=== PATIENT | male | born 1935 | race Caucasian/White ===

== ENCOUNTER 2019-11-23 10:52 | Day surgery (SDC) | payer MEDICARE, OTHER ==
[~2019-11-23] VITALS: Ht 188 cm; Wt 76.2 kg
--- NOTE | ~2019-11-23 | OP ---
PATIENT NAME: HANDY GAONA MEDICAL RECORD: [id number] :31 [facility]ATION[facility] AD[facility]ION DATE: SURGEON: ANABELL CHEN DO DATE OF OPERATION: 11/23/2019 PROCEDURE: EGD and ERCP. INDICATIONS FOR PROCEDURE: Choledocholithiasis. SCOPE: Olympus video gastroscope and Olympus video duodenoscope. MEDICATIONS: Ancef 1 gram IV. The patient was under general anesthesia. Please see anesthesia report. FLUOROSCOPY TIME: 7 minutes. ESTIMATED BLOOD LOSS: Minimal. COMPLICATIONS: None. FINDINGS: Informed consent was given. The patient was made comfortable with the above medication. After reaching an adequate level of sedation by slow IV push, the patient was sedated, intubated, and placed in a semi-prone position. The endoscope was advanced under direct visualization through the mouth to the second portion of the duodenum with ease. The esophagus appears normal to the GE junction. At the GE junction, there were minor changes consistent with LA class A reflux-induced esophagitis. The endoscope was advanced beyond the GE junction into the stomach and retroflexed to view the cardia and fundus. There was no hiatal hernia appreciated. Throughout the fundus and body of the stomach, there were chronic gastritis changes consisting of erythema and some congestion. Cold forceps biopsies were taken from the antrum to submit for histopathology and to rule out the presence of H. pylori. The endoscope was advanced beyond the pylorus into the duodenum, which appeared normal to the second portion. The endoscope was then withdrawn from the patient and the duodenoscope was placed through the mouth and advanced to the second portion of the duodenum where the ampulla was identified. There were 2 large diverticula just adjacent to the ampulla and flanking the ampulla from both sides. Deep biliary cannulation was achieved with ease. A generous sphincterotomy of approximately 15 mm was made. A dilating balloon was used to dilate the sphincter to approximately 15 mm maximum diameter successfully. A cholangiogram revealed multiple large stones ranging in size from 1 cm to approximately 2 cm. A sweeping balloon was used to remove the smaller 1 cm stones. This left 2 large 2-cm stones located in the upper common bile duct. Approximately 1 hour was spent using multiple devices including baskets, balloons, dilating devices, trying to extract these stones without success. The procedure was eventually terminated and the guidewires, catheters, and endoscopes were removed from the patient. The patient did tolerate the procedure well throughout its entirety and there were no immediate complications. IMPRESSION: 1. LA class A reflux-induced esophagitis. 2. Mild chronic gastritis. 3. Choledocholithiasis, status post sphincterotomy and sphincteroplasty with removal of multiple calculi. There is, however two large calculi remaining in the duct itself. OPERATIVE REPORT [id number] HANDY GAONA PLAN AND RECOMMENDATIONS: 1. Discharge home when recovery parameters are met. 2. Follow up biopsy specimen results. 3. GERD diet and reflux precautions. 4. Proceed with surgery with Dr. Campa. 5. Can consider referral to [facility] for hydraulic lithotripsy of the remaining stones if the patient wishes and this equipment is available at [facility]. TRANSINT:[id number] Voice Confirmation ID: [id number] DOCUMENT ID: [id number] ANABELL CHEN DO CC: [id number] DICTATION DATE: 11/23/19 1531 [employer]INDOW INSTALLATION SUBCONTRACTOR: 11/24/19 0159 [facility] 11/23/19 [id number] [place] [address]
[2019-11-23 11:16] LABS: BASOPHILS 0.2 % (0-2); EOSINOPHILS 0 % (0-7); HEMATOCRIT 35.3 % (42.0-54.0); HEMOGLOBIN 11.7 g/dL (13.5-17.5); IMMATURE GRANULOCYTES 0.2 % (0-5); LYMPHOCYTES 20.9 % (15-50); MCHC 33.1 g/dL (31.0-37.0); MCV 90.5 fL (80.0-100.0); MEAN PLATELET VOLUME 9.7 fL (7.4-10.4); MONOCYTES 7.5 % (2-11); NEUTROPHILS 71.2 % (40-80); PLATELET COUNT 220 10x3/uL (130-400); RDW 15.2 % (11.5-14.5); WBC 6.2 10x3/uL (4.8-10.8)
[2019-11-23 11:29] LABS: ALBUMIN 3.6 g/dL (3.4-5.0); BILIRUBIN - TOTAL 1.21 mg/dL (0.2-1.3); CALCIUM 8.9 mg/dL (8.5-10.1); CARBON DIOXIDE 25.3 mmol/L (21.0-32.0); CREATININE - SERUM 1.9 mg/dL (0.6-1.3); POTASSIUM - SERUM 4.3 mmol/L (3.5-5.1); PROTEIN - SERUM 7.4 g/dL (6.4-8.2)
[2019-11-23] MEDS ORDERED: ZYLOPRIM100 MG PO (12:01)
[2019-11-23] MEDS ORDERED: TRICOR145 MG PO (12:01)
[2019-11-23] MEDS ORDERED: PLAVIX75 MG PO (12:02)
[2019-11-23] MEDS ORDERED: ZOCOR40 MG PO (12:02)
[2019-11-23] MEDS ORDERED: NORVASC2.5 MG PO (12:02)
[2019-11-23] MEDS ORDERED: COZAAR50 MG PO (12:02)
[2019-11-23] MEDS ORDERED: HYDROCHLOROTH12.5 M1 PO (12:03)
[2019-11-23 12:12] VITALS: Ht 188 cm; Wt 76.2 kg
[2019-11-23 12:40] LABS: APTT 34.2 SECONDS (22.8-39.4)
[2019-11-23 12:43] LABS: INR 1.07 (0.85-1.17); PROTIME 13.9 SECONDS (11.6-15.0)
--- NOTE | 2019-11-23 15:08 | NUR ---
7 MINUTES FLURO TIME 55CC CONTRAST USED
--- NOTE | 2019-11-23 17:23 | NUR ---
1615 IV REMOVED INSTRUCTIONS GIVEN AND PT VOIDED X1
== END 2019-11-23 16:45 | disposition home or self-care (01) ==
LOC: D.OPS 10:52
PROVIDERS: Anesthesiology; ATTEND Internal Medicine Gastroenterology
DX: K80.50 Calculus of bile duct without cholangitis or cholecystitis without obstruction (principal)